=== PATIENT | female | born 1985 | race Caucasian/White ===

== ENCOUNTER → 2017-01-07 | Outpatient (CLI) | payer BC | END | disposition home or self-care (01) | LOC: C.PAPS 10:02 | PROVIDERS: ATTEND Obstetrics & Gynecology | DX: Z01.419 Encounter for gynecological examination (general) (routine) without abnormal findings (principal) ==

== ENCOUNTER → 2017-01-10 | Outpatient (CLI) | payer BC ==
[2017-01-10 08:28] LABS: PROLACTIN 10.97 ng/mL
== END | disposition home or self-care (01) ==
LOC: C.LAB 06:48
PROVIDERS: ATTEND Obstetrics & Gynecology
DX: Z31.41 Encounter for fertility testing (principal)

== ENCOUNTER → 2017-01-20 | Outpatient (CLI) | payer BC ==
--- NOTE | 2017-01-20 09:58 | DIAGNOSTIC IMAGING REPORT ---
HYSTEROSALPINGOGRAM CLINICAL HISTORY: Fertility testing. COMPARISON STUDY: No priors. FINDINGS: Fluoroscopic assistance was provided to the motor man in performing a hysterosalpingogram. The uterine cavity distends normally. No filling defects are identified. There is normal filling of the fallopian tubes, with free spillage of contrast into pelvis bilaterally. Fluoroscopy time: 0.4 minutes. IMPRESSION: Unremarkable hysterosalpingogram. The fallopian tubes are patent bilaterally. Electronically signed by: Esvin Dawson M.D. 01/20/2017 9:56 AM Dictated Date/Time: 01/20/2017 9:56 AM
--- NOTE | 2017-01-20 11:46 | OPERATIVE REPORT ---
DATE OF OPERATION: 01/20/2017 PREOPERATIVE DIAGNOSIS: Infertility. POSTOPERATIVE DIAGNOSIS: Infertility, patent tubes, normal uterus. PROCEDURE: Hystersalpingogram. SURGEON: Dr. Godinez. ANESTHETIC: None. COMPLICATIONS: None. RADIOLOGIST: Dr. Dawson. PROCEDURE: Salome reviewed the procedure, risks, benefits and alternatives. Patient of Dr. Tidwell'chau who is dealing with infertility and wishes hystersalpingogram to determine patency of her fallopian tubes. Using sterile technique, we inserted a speculum in the vagina, Betadine on the cervix. Single tooth tenaculum on the cervix and then cervical acorn manipulator attached to the cervix to allow injection of radiopaque dye. Radiopaque dye was then witnessed passing into the uterus and both tubes were normal with spill on both sides, Dr. Dawson present. At the end of the procedure instruments removed from the cervix and vagina. Sponge and instrument counts correct. Minimal bleeding noticed. I attest to the content of the Intraoperative Record and any orders documented therein. Any exception s are noted below.
== END | disposition home or self-care (01) ==
LOC: C.RAD 09:06
PROVIDERS: ATTEND Obstetrics & Gynecology
DX: Z31.41 Encounter for fertility testing (principal)

== ENCOUNTER → 2017-03-18 | Outpatient (CLI) | payer BC ==
[2017-03-18 08:58] LABS: SEMEN VOLUME 3.8 ML
[2017-03-18 09:42] LABS: POST WASH EXAM EXCELLENT
== END | disposition home or self-care (01) ==
LOC: C.LAB 08:14
PROVIDERS: ATTEND Obstetrics & Gynecology
DX: N97.9 Female infertility, unspecified (principal)